=== PATIENT | female | born 1970 | race Caucasian/White ===

== ENCOUNTER → 2019-04-24 | Outpatient (CLI) | payer BC ==
--- NOTE | 2019-04-24 16:45 | Diagnostic Imaging Report ---
PROCEDURE: US Thyroid. TECHNIQUE: Multiple real-time grayscale images were obtained of the thyroid in various projections. INDICATION: Thyromegaly COMPARISON: None FINDINGS: The right thyroid lobe measures 5.4 x 2.2 x 1.6 cm. Echotexture appears normal. There is no hyperemia. There is a very small hypoechoic nodule in the medial right thyroid which measures up to 3 mm in size. There is an additional hypoechoic nodule in the inferior right thyroid which measures up to 2 mm. These appear predominantly cystic. The isthmus is mildly thickened measuring 7 mm. The left thyroid lobe measures 4.6 x 1.9 x 1.4 cm. Echotexture and vascularity appears normal. No nodules are seen. IMPRESSION: 1. Mild prominence of the isthmus, otherwise unremarkable thyroid size and echotexture. 2. Two tiny hypoechoic nodules in the right thyroid. Tissue sampling or followup is not indicated at this time. Dictated by: Dictated on workstation # [id number]
== END ==
LOC: RAD 14:45
PROVIDERS: ATTEND Nurse Practitioner Family
DX: E01.0 Iodine-deficiency related diffuse (endemic) goiter (principal); E07.89 Other specified disorders of thyroid
CPT/HCPCS: 76536